=== PATIENT | male | born 1990 | race Caucasian/White ===

== ENCOUNTER 2016-08-08 08:30 | Emergency (ER) | payer BC, OTHER ==
[~2016-08-08] VITALS: Ht 185.4 cm; Wt 95.3 kg
[~2016-08-08 08:30] MED LIST: IBUPROFEN 600600 M1 PO; VALIUM5 MG PO
[2016-08-08] MEDS ORDERED: NORCO 5-325 TA1 EACH PO (09:10)
[2016-08-08] MEDS ORDERED: NAPROSYN500 MG PO (09:10)
[2016-08-08] MEDS ORDERED: VALIUM5 MG PO (09:38)
[2016-08-08 09:44] VITALS: BP 135/79
== END 2016-08-08 09:45 | disposition home or self-care (01) ==
LOC: ER 08:30
DX: M54.5 Low back pain (principal); X50.0XXA Overexertion from strenuous movement or load, initial encounter; Y93.89 Activity, other specified; Y92.89 Other specified places as the place of occurrence of the external cause; Y99.8 Other external cause status